=== PATIENT | male | born 2005 | race Two or more races ===

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

== ENCOUNTER 2024-08-26 16:06 | Emergency (ER) | payer BC, SELFPAY ==
[2024-08-26 16:16] VITALS: BP 114/79; PULSE 63; TEMP 36.9; O2SAT 100; BMI 20.2
--- NOTE | 2024-08-26 18:27 | ED_ITS ---
Documented by User: TRAVIS Becerra 08/26/24 18:40 HPI HPI - Extremity Injury (Upper) General Chief Complaint: Extremity Injury, Upper Stated Complaint: ARM INJURY-YESTERDAY Time Seen by Provider: 08/26/24 18:16 Source: patient and family (mother) Mode of arrival: walk-in Limitations: no limitations History of Present Illness HPI narrative: 19-year-old male presents to the emergency department with mother with complaint of right forearm, elbow injury. Injury occurred yesterday. States she fell, stuck his arm out and his arm twisted awkwardly. Has been having pain since. Worsens with palpation, movement. Denies any other injury, motor or sensory changes, paresthesias. Patient is right-handed Quality:?Twisting trauma Severity:?Mild Timing:?As above, constant Context: Normal setting and activity? Modifying factors:?As above Associated symptoms: Swelling Related Data Home Medications ?Medication ?Instructions ?Recorded ?Confirmed No Known Home Medications 04/10/23 04/10/23 Allergies Allergy/AdvReac Type Severity Reaction Status Date / Time No Known Drug Allergies Allergy Verified 04/10/23 10:05 Opioid HPI Opioid Management Most Recent Pain and Opioid Data: No Data to Display Review of Systems ROS Narrative CONST: Denies activity change, weakness MS: + arthralgias, swelling.? SKIN: + bruising. NEURO: Denies numbness, paresthesias, weakness PFSH PFSH Social History Smoking status: Never smoker Little interest or pleasure in doing things: not at all Feeling down, depressed, or hopeless: not at all Exam Narrative Exam Narrative: Vital signs noted Nurses notes reviewed CONST: Nontoxic, well appearing, well nourished, in no distress.? HENT: normocephalic, atraumatic. CV: 2+ palpable right radial pulse MS: Right elbow, forearm: +tenderness,swelling, bruising to the antecubital region of the elbow. He has some tenderness over the medial condyle with some swelling as well. Tenderness extends along the volar aspect of the proximal forearm.? No tenderness to the radial head, lateral condyle, shoulder, fingers, hand, wrist.? No crepitus, deformity, instability, warmth.? Active ROM is full with flexion, extension, pronation, supination .? Strength 5/5 NEURO: Sensory intact throughout and distal to the injury SKIN: intact, warm, dry.? No wound PSYCHIATRIC: normal mood, affect Constitutional Vital Signs, click to edit/add: Last Vital Signs Temp 98.4 F 08/26/24 16:16 Pulse 63 08/26/24 16:16 Resp 18 08/26/24 16:16 BP 114/79 08/26/24 16:16 Pulse Ox 100 08/26/24 16:16 Course Vital Signs Vital signs: Vital Signs Temperature 98.4 F 08/26/24 16:16 Pulse Rate 63 08/26/24 16:16 Respiratory Rate 18 08/26/24 16:16 Blood Pressure 114/79 08/26/24 16:16 Pulse Oximetry 100 08/26/24 16:16 Temperature 98.4 F 08/26/24 16:16 Pulse Rate 63 08/26/24 16:16 Respiratory Rate 18 08/26/24 16:16 Blood Pressure 114/79 08/26/24 16:16 Pulse Oximetry 100 08/26/24 16:16 MDM - Extremity Injury (Upper) MDM Narrative Medical decision making narrative: This is a pleasant 19-year-old male who presents to the emergency department for evaluation of right elbow and forearm injury On arrival, afebrile, vital signs stable. On exam, nontoxic, well appearing patient, in no apparent distress. He has tenderness to the proximal forearm into the antecubital region with some mild bruising in the antecubital region. He also has some tenderness over the medial condyle. No other tenderness is noted. Range of motion full. Strength 5/5. Neurovascularly intact. X-ray imaging right elbow and forearm, per radiologist reveals no acute Favor right elbow and forearm sprain Fx/Dislocation less likely based on imaging History and Record Review Discussion with independent historian: Mother Management Independent interpretation: Right elbow: No fracture, dislocation, or other acute abnormality noted Disposition ? The patient was discharged. Patient advised rest, ice, elevation, compression Patient advised Ibuprofen/Tylenol as needed for pain Patient placed in sling Plan: Patient will be discharged to home. Condition at time of disposition: stable, improved. ? Advised to follow up with referral provider, name and number placed on discharge paperwork. Advised to return for any worsening and/or development of new, concerning signs or symptoms PLEASE NOTE: Portions of the medical record may have been produced using electronic instructional support technician and may contain errors with respect to translation of words which may not have been identified prior to finalization of the chart. Imaging Data right elbow/forearm: Radiologist's impression: No acute findings Discharge Plan Discharge Chief Complaint: Extremity Injury, Upper Clinical Impression: Other sprain of right elbow, initial encounter Sprain of forearm, right Qualifiers: Encounter type: initial encounter Qualified Code(s): S63.501A - Unspecified sprain of right wrist, initial encounter Patient Disposition: Home, Self-Care Time of Disposition Decision: 18:36 Condition: Good Mode of Transportation: Private Vehicle Prescriptions / Home Meds: No Action No Known Home Medications Print Language: Irish Instructions: Sprain (ED), Elbow Sprain (ED) Additional Instructions: Take 600 mg of over the counter ibuprofen (3 tabs) as needed for pain . Referrals: Truman Alvarez MD [Physician] - 1 week Discharge Date/Time: 08/26/24 18:58 Documented by User: Shade Joshua MD 08/26/24 20:01 HPI HPI - Extremity Injury (Upper) General Chief Complaint: Extremity Injury, Upper Stated Complaint: ARM INJURY-YESTERDAY Time Seen by Provider: 08/26/24 18:16 Related Data Home Medications ?Medication ?Instructions ?Recorded ?Confirmed No Known Home Medications 04/10/23 04/10/23 Allergies Allergy/AdvReac Type Severity Reaction Status Date / Time No Known Drug Allergies Allergy Verified 04/10/23 10:05 Opioid HPI Opioid Management Most Recent Pain and Opioid Data: No Data to Display PFSH PFSH Social History Smoking status: Never smoker Little interest or pleasure in doing things: not at all Feeling down, depressed, or hopeless: not at all Exam Constitutional Vital Signs, click to edit/add: Last Vital Signs Temp 98.4 F 08/26/24 16:16 Pulse 63 08/26/24 16:16 Resp 18 08/26/24 16:16 BP 114/79 08/26/24 16:16 Pulse Ox 100 08/26/24 16:16 Course Vital Signs Vital signs: Vital Signs Temperature 98.4 F 08/26/24 16:16 Pulse Rate 63 08/26/24 16:16 Respiratory Rate 18 08/26/24 16:16 Blood Pressure 114/79 08/26/24 16:16 Pulse Oximetry 100 08/26/24 16:16 Temperature 98.4 F 08/26/24 16:16 Pulse Rate 63 08/26/24 16:16 Respiratory Rate 18 08/26/24 16:16 Blood Pressure 114/79 08/26/24 16:16 Pulse Oximetry 100 08/26/24 16:16 MDM - Extremity Injury (Upper) MDM Narrative Medical decision making narrative: This is a pleasant 19-year-old male who presents to the emergency department for evaluation of right elbow and forearm injury On arrival, afebrile, vital signs stable. On exam, nontoxic, well appearing patient, in no apparent distress. He has tenderness to the proximal forearm into the antecubital region with some mild bruising in the antecubital region. He also has some tenderness over the medial condyle. No other tenderness is noted. Range of motion full. Strength 5/5. Neurovascularly intact. X-ray imaging right elbow and forearm, per radiologist reveals no acute Favor right elbow and forearm sprain Fx/Dislocation less likely based on imaging History and Record Review Discussion with independent historian: Mother Management Independent interpretation: Right elbow: No fracture, dislocation, or other acute abnormality noted Disposition ? The patient was discharged. Patient advised rest, ice, elevation, compression Patient advised Ibuprofen/Tylenol as needed for pain Patient placed in sling Plan: Patient will be discharged to home. Condition at time of disposition: stable, improved. ? Advised to follow up with referral provider, name and number placed on discharge paperwork. Advised to return for any worsening and/or development of new, concerning signs or symptoms PLEASE NOTE: Portions of the medical record may have been produced using electronic instructional support technician and may contain errors with respect to translation of words which may not have been identified prior to finalization of the chart. I, Dr Joshua, have reviewed the above progress note and course of action in the ER; agree with the above. I have personally gone over history and physical, and discussed disposition and treatment plan with the PA. Discharge Plan Discharge Chief Complaint: Extremity Injury, Upper Clinical Impression: Other sprain of right elbow, initial encounter Sprain of forearm, right Qualifiers: Encounter type: initial encounter Qualified Code(s): S63.501A - Unspecified sprain of right wrist, initial encounter Patient Disposition: Home, Self-Care Time of Disposition Decision: 18:36 Condition: Good Mode of Transportation: Private Vehicle Prescriptions / Home Meds: No Action No Known Home Medications Print Language: Irish Instructions: Sprain (ED), Elbow Sprain (ED) Additional Instructions: Take 600 mg of over the counter ibuprofen (3 tabs) as needed for pain . Referrals: Truman Alvarez MD [Physician] - 1 week Discharge Date/Time: 08/26/24 18:58
== END 2024-08-26 18:58 | disposition home or self-care (01) ==
PROVIDERS: Emergency Provider Emergency Medicine
DX: S53.401A Unspecified sprain of right elbow, initial encounter (principal); X50.1XXA Overexertion from prolonged static or awkward postures, initial encounter; W19.XXXA Unspecified fall, initial encounter; S63.501A Unspecified sprain of right wrist, initial encounter
CPT/HCPCS: 73080; 73090; 99284